=== PATIENT | female | born 1980 | race Caucasian/White ===

== ENCOUNTER 2024-04-07 19:02 | Emergency (ER) | payer MEDICAID, OTHER ==
[~2024-04-07] VITALS: Ht 149.9 cm; Wt 68.0 kg
[2024-04-07 19:31] VITALS: BP_SYST 114; PULSE 111; RESP 16; TEMP 98.6; O2SAT 100
[2024-04-07] MEDS: NACL 0.9% 1,000 ML IV ONE (20:10)
[2024-04-07] MEDS: ONDANSETRON HCL 4 MG/2 ML VIAL IVP ONE (20:10)
[2024-04-07 20:42] LABS: BASOPHILS % (AUTO) 0.1 % (0.0-2.0); HEMATOCRIT 33.6 % (36-48); HEMOGLOBIN 11.8 g/dL (12.0-16.0); LYMPHOCYTES # (AUTO) 1.1 K/uL (1.0-5.5); LYMPHOCYTES % (AUTO) 13.8 % (20.5-51.5); MEAN CORPUSCULAR HEMOGLOBIN 34 pg (27-31); MEAN CORPUSCULAR HGB CONC 35 % (32-36); MEAN CORPUSCULAR VOLUME 97 fL (79.0-98.0); MONOCYTES % (AUTO) 12.4 % (1.7-9.3); NEUTROPHILS # (AUTO) 5.9 K/uL (1.8-7.7); NEUTROPHILS % (AUTO) 73.7 % (40.0-70.0); PLATELET COUNT (AUTO) 212 K/uL (130-430); RED BLOOD CELL COUNT(AUTO) 3.48 MIL/uL (4.2-6.2); RED CELL DISTRIBUTION WIDTH 13.3 % (9.0-15.0)
[2024-04-07 20:57] LABS: ALBUMIN 3.3 g/dL (3.4-4.8); BILIRUBIN,DIRECT 0.1 mg/dL (0.0-0.3); CALCIUM 8.8 mg/dL (8.4-11.0); CREATININE 0.78 mg/dL (0.55-1.30); POTASSIUM 3.2 mmol/L (3.5-5.1); TOTAL BILIRUBIN 0.3 mg/dL (0.0-1.0); TOTAL PROTEIN, SERUM 7.4 g/dL (6.4-8.3)
[2024-04-07 22:47] LABS: BILIRUBIN,URINE NEGATIVE (NEGATIVE); BLOOD, URINE NEGATIVE (NEGATIVE); COLOR,URINE YELLOW (YELLOW); GLUCOSE,URINE NEGATIVE (NEGATIVE); KETONES,URINE 1+ (NEGATIVE); LEUKOCYTE ESTERASE ,URINE NEGATIVE (NEGATIVE); NITRITE, URINE NEGATIVE (NEGATIVE); PROTEIN URINE NEGATIVE (NEGATIVE); UROBILINOGEN,URINE 0.2 (0.2-1.0)
[2024-04-07 22:54] LABS: CLARITY/URINE HAZY (CLEAR)
[2024-04-07] MEDS ORDERED: ONDA-8 TL (22:58)
[2024-04-07 23:04] VITALS: BP_SYST 114; PULSE 111; RESP 16; TEMP 98.6; O2SAT 100
[2024-04-09] MEDS ORDERED: DOCU-144 PO (23:58)
[2024-04-09] MEDS ORDERED: SENN8.6T19 PO (23:58)
[2024-04-09] MEDS ORDERED: VITD2000 PO (23:58)
[2024-04-09] MEDS ORDERED: FER300L PO (23:58)
[2024-04-09] MEDS ORDERED: HYDROCORTISONE TD (23:58)
[2024-04-09] MEDS ORDERED: DIVA-74 PO (23:58)
[2024-04-09] MEDS ORDERED: ACET-73 PO (23:58)
[2024-04-09] MEDS ORDERED: CLON1TAB12 PO (23:58)
[2024-04-09] MEDS ORDERED: QUET400T5 PO (23:58)
[2024-04-09] MEDS ORDERED: LEVO100T9 PO (23:58)
[2024-04-09] MEDS ORDERED: SERT50TA PO (23:58)
[2024-04-09] MEDS ORDERED: LORA10TA7 PO (23:58)
[2024-04-09] MEDS ORDERED: ZINC100T2 PO (23:58)
[2024-04-09] MEDS ORDERED: ASCO500T20 PO (23:58)
[2024-04-09] MEDS ORDERED: RISP1TAB45 PO (23:58)
[2024-04-09] MEDS ORDERED: TRIHEXYPHEN PO (23:58)
[2024-04-09] MEDS ORDERED: MULT400T13 (23:58)
[2024-04-09] MEDS ORDERED: POLY17PO44 PO (23:58)
[2024-04-09] MEDS ORDERED: GABA-529 PO (23:58)
[2024-04-09] MEDS ORDERED: D-ME120S28 PO (23:58)
[2024-04-09] MEDS ORDERED: ATOR-449 PO (23:58)
[2024-04-09] MEDS ORDERED: CALC625T PO (23:58)
== END 2024-04-07 23:07 | disposition home or self-care (01) ==
LOC: SED 19:02
DX: A08.4 Viral intestinal infection, unspecified (principal); R11.2 Nausea with vomiting, unspecified; E78.5 Hyperlipidemia, unspecified; E07.9 Disorder of thyroid, unspecified; Z79.899 Other long term (current) drug therapy
CPT/HCPCS: 99283; 96374; 96361; 80076; 80048; 81001; 85025; 36415; 81003; J2405; J7030